=== PATIENT | female | born 1965 | race Two or more races ===

== ENCOUNTER 2022-10-14 09:14 | Day surgery (SDC) | payer BC, OTHER ==
[2022-10-12 12:06] VITALS: BMI 25.7
[2022-10-14] MEDS ORDERED: ACETAMINOPHEN 1000 MG/100 ML BAG IVPB ONE (10:45)
[2022-10-14] MEDS ORDERED: ROCURONIUM BROMIDE 50 MG/5 ML SYRINGE ONE (12:05)
[2022-10-14] MEDS ORDERED: MIDAZOLAM HCL 2 MG/2 ML SINGLE DOSE VIAL ONE (12:05)
[2022-10-14] MEDS ORDERED: PROPOFOL 20 ML ONE (12:05)
[2022-10-14] MEDS ORDERED: ACETAMINOPHEN INJECTION 100 ML IVPB ONE (12:30)
[2022-10-14] MEDS ORDERED: ceFAZolin SODIUM 1 GM VIAL ONE ×2 (12:41)
[2022-10-14] MEDS ORDERED: DEXAMETHASONE SOD PHOSPHATE 4 MG/1 ML VIAL ONE (12:43)
[2022-10-14] MEDS ORDERED: ONDANSETRON 4 MG/2 ML VIAL ONE (12:44)
[2022-10-14] MEDS ORDERED: KETOROLAC TROMETHAMINE 30 MG/1 ML VIAL ONE (13:31)
[2022-10-14] MEDS ORDERED: BUPIVACAINE 0.25% /EPI 1:200,000 10 ML VIAL NR ONE (13:40)
[2022-10-14] MEDS ORDERED: oxyCODONE HCL 5 MG TABLET PO PRN ×2 (14:13)
[2022-10-14] MEDS ORDERED: LACTATED RINGERS SOLUTION 1,000 ML IV SCH (14:15)
[2022-10-14] MEDS ORDERED: FENTANYL CITRATE/PF 50 MCG/ML VIAL ONE ×2 (14:46→15:02)
[2022-10-14] MEDS ORDERED: oxyCODONE HCL 5 MG TABLET ONE (15:49)
[2022-10-14 15:50] VITALS: RESP 18; TEMP 100
[2022-10-14] MEDS ORDERED: oxyCODONE HCL 5 MG TABLET PO ONE (15:55)
[2022-10-14 16:02] VITALS: BP 139/79; PULSE 98
[2022-10-14] MEDS ORDERED: ACETAMINOPHEN 325 MG TABLET (FP) PO PRN (16:13)
== END 2022-10-14 16:50 | disposition home or self-care (01) ==
LOC: FASU 09:14
PROVIDERS: ATTEND Plastic Surgery
PROC: 0HQX0ZZ Repair Left Nipple, Open Approach (ICD-10-PCS; principal; 2022-10-14 12:54)
PROC: 0HX5XZZ Transfer Chest Skin, External Approach (ICD-10-PCS; 2022-10-14 12:54)
PROC: 0HRV37Z Replacement of Bilateral Breast with Autologous Tissue Substitute, Percutaneous Approach (ICD-10-PCS; 2022-10-14 12:54)
PROC: 0HB7XZZ Excision of Abdomen Skin, External Approach (ICD-10-PCS; 2022-10-14 12:54)
DX: Z85.3 Personal history of malignant neoplasm of breast (principal); Z90.12 Acquired absence of left breast and nipple; N65.0 Deformity of reconstructed breast
CPT/HCPCS: 94760